=== PATIENT | female | born 1950 | race American Indian/Alaskan Native ===

== ENCOUNTER 2018-01-25 11:21 | Emergency (ER) | payer MEDICAID, MEDICARE ==
[2018-01-25] MEDS ORDERED: MOTRIN PO ONE (14:12)
--- NOTE | 2018-01-25 14:28 | Emergency Department Report ---
ED Lower Extremity HPI - General Chief Complaint: Extremity Injury, Lower Stated Complaint: KNEE PAIN Time Seen by Provider: 01/25/18 13:31 Source: patient Mode of arrival: Ambulatory Limitations: No Limitations - History of Present Illness Initial Comments: This is a 68-year-old female nontoxic, well nourished in appearance, no acute signs of distress presents to the ED with c/o of left knee pain status post fall that occured yesterday. Son is present during interview and exam. Patient stated she had a trip and grown level fall to the left knee. Patient denies any trauma to the head or any other extremities. Patient denies any chest pain, shortness of breathe, fever, chills, headache, nausea, vomiting, numbness, or tingling. Patient denies any allergies or PMH. MD Complaint: knee injury -: days(s) (1) Injury: Knee: Left Type of Injury: blunt Place: street/outdoors Severity: mild Severity scale (0 -10): 8 Improves With: immobilization Worsens With: movement, palpation Context: fall Associated Symptoms: ambulatory. denies: snap/pop sensation, swelling, numbness , tingling, unable to bear weight, able to partially bear weight - Related Data Home Medications Medication Instructions Recorded Confirmed Last Taken Acetaminophen [Arthritis Pain 650 mg PO BID PRN 12/23/15 12/23/15 Unknown Relief] Alendronate Sodium [Fosamax] 70 mg PO QWEEK 12/23/15 12/23/15 Unknown Calcium/Magnesium/Zinc 1 each PO QDAY 12/23/15 12/23/15 Unknown [Whmjuxx-Kcawhjzny-Zzlo Tablet] Gluc/MSM/C/Dawn/Manganes/Prim 1 each PO QDAY 12/23/15 12/23/15 Unknown [Joint Support Complex Softgel] Hydrochlorothiazide [HCTZ] 25 mg PO QDAY 12/23/15 12/23/15 Unknown NIFEdipine XL [Procardia Xl] 60 mg PO QDAY 12/23/15 12/23/15 Unknown [place]-3/Dha/Epa/Fish Oil [Fish Oil 1 each PO DAILY 12/23/15 12/23/15 Unknown [place]-3 EC 1,200 mg] Vit A & D3 in Cod Liver Oil [Pv 1 each PO DAILY 12/23/15 12/23/15 Unknown Cod Liver Oil Softgel] Previous Rx's Medication Instructions Recorded Last Taken Type Ibuprofen [Motrin] 600 mg PO Q8H PRN #30 tablet 01/25/18 Unknown Rx Allergies Allergy/AdvReac Type Severity Reaction Status Date / Time No Known Allergies Allergy Verified 05/29/14 10:10 ED Review of Systems ROS: Stated complaint: KNEE PAIN Other details as noted in HPI Constitutional: denies: chills, fever Eyes: denies: eye pain, eye discharge, vision change ENT: denies: ear pain, throat pain Respiratory: denies: cough, shortness of breath, wheezing Cardiovascular: denies: chest pain, palpitations Endocrine: no symptoms reported Gastrointestinal: denies: abdominal pain, nausea, diarrhea Genitourinary: denies: urgency, dysuria, discharge Musculoskeletal: arthralgia. denies: back pain, joint swelling Skin: denies: rash, lesions Neurological: denies: headache, weakness, paresthesias Psychiatric: denies: anxiety, depression Hematological/Lymphatic: denies: easy bleeding, easy bruising ED Past Medical Hx - Past Medical History Hx Hypertension: Yes Additional medical history: chronic body pain - Social History Smoking Status: Never Smoker Substance Use Type: None - Medications Home Medications: Home Medications Medication Instructions Recorded Confirmed Last Taken Type Acetaminophen [Arthritis Pain 650 mg PO BID PRN 12/23/15 12/23/15 Unknown History Relief] Alendronate Sodium [Fosamax] 70 mg PO QWEEK 12/23/15 12/23/15 Unknown History Calcium/Magnesium/Zinc 1 each PO QDAY 12/23/15 12/23/15 Unknown History [Vodlgpc-Kkunkeacq-Zvgz Tablet] Gluc/MSM/C/Dawn/Manganes/Prim 1 each PO QDAY 12/23/15 12/23/15 Unknown History [Joint Support Complex Softgel] Hydrochlorothiazide [HCTZ] 25 mg PO QDAY 12/23/15 12/23/15 Unknown History NIFEdipine XL [Procardia Xl] 60 mg PO QDAY 12/23/15 12/23/15 Unknown History [place]-3/Dha/Epa/Fish Oil [Fish Oil 1 each PO DAILY 12/23/15 12/23/15 Unknown History [place]-3 EC 1,200 mg] Vit A & D3 in [place] Liver Oil [Pv 1 each PO DAILY 12/23/15 12/23/15 Unknown History Cod Liver Oil Softgel] Ibuprofen [Motrin] 600 mg PO Q8H PRN #30 tablet 01/25/18 Unknown Rx ED Physical Exam - General Limitations: No Limitations General appearance: alert, in no apparent distress - Head Head exam: Present: atraumatic, normocephalic - Eye Eye exam: Present: normal appearance Pupils: Present: normal accommodation - ENT ENT exam: Present: normal exam, mucous membranes moist - Neck Neck exam: Present: normal inspection, full ROM. Absent: tenderness, meningismus - Respiratory Respiratory exam: Present: normal lung sounds bilaterally. Absent: respiratory distress, wheezes, rales, rhonchi, stridor, chest wall tenderness, accessory muscle use, decreased breath sounds, prolonged expiratory - Cardiovascular Cardiovascular Exam: Present: regular rate, normal rhythm, normal heart sounds. Absent: bradycardia, tachycardia, irregular rhythm, systolic murmur, diastolic murmur, rubs, gallop - GI/Abdominal GI/Abdominal exam: Present: soft, normal bowel sounds - Extremities Exam Extremities exam: Present: normal inspection, full ROM, tenderness, normal capillary refill. Absent: pedal edema, joint swelling, calf tenderness - Expanded Lower Extremity Exam Left Hip exam: Present: normal inspection, full ROM, external rotation, internal rotation, pelvic stability. Absent: tenderness, swelling, abrasion, laceration , ecchymosis, deformity, crepidus, dislocation, erythema, shortening Upper Leg exam: Present: normal inspection, full ROM. Absent: tenderness, swelling, abrasion, laceration, ecchymosis, deformity, crepidus, dislocation, erythema Knee exam: Present: normal inspection, full ROM, tenderness, swelling, full knee extension. Absent: abrasion, laceration, ecchymosis, deformity, crepidus, dislocation, effusion, pain w/ pronation/supination, posterior draw sign, pain/ laxity with valgus, pain/laxity with varus Lower Leg exam: Present: normal inspection, full ROM. Absent: tenderness, swelling, abrasion, laceration, ecchymosis, deformity, crepidus, dislocation, erythema, palpable cord, Rosa's sign Ankle exam: Present: normal inspection, full ROM. Absent: tenderness, swelling , abrasion, laceration, ecchymosis, deformity, crepidus, dislocation, erythema, anterior draw sign Foot/Toe exam: Present: normal inspection, full ROM. Absent: tenderness, swelling, abrasion, laceration, ecchymosis, deformity, crepidus, dislocation, erythema, amputation, puncture wound, foreign body, calcaneal tenderness, tenderness at base of 5th metatarsal, nail avulsion, subungual hematoma Neuro vascular tendon exam: Present: no vascular compromise. Absent: pulse deficit, abnormal cap refill, motor deficit, sensory deficit, tendon deficit, extremity cold to touch, pallor, abnormal 2-point discrimination, decreased fine /light touch, foot drop, peroneal nerve deficit, significant pain with passive ROM of distal joint Gait: Positive: observed and normal - Back Exam Back exam: Present: normal inspection, full ROM. Absent: paraspinal tenderness , vertebral tenderness - Neurological Exam Neurological exam: Present: alert, oriented X3, normal gait - Psychiatric Psychiatric exam: Present: normal affect, normal mood - Skin Skin exam: Present: warm, dry, intact, normal color. Absent: rash ED Course Vital Signs 01/25/18 11:46 Temperature 98.6 F Pulse Rate 61 Respiratory 18 Rate Blood Pressure 147/83 O2 Sat by Pulse 98 Oximetry - Reevaluation(s) Reevaluation #1: 01/25/18 14:27 Patient is speaking in full sentences with no signs of distress noted. ED Lower Extremity MDM - Medical Decision Making This is a 68-year-old female that presents with left knee strain. Patient was examined by me. X-ray has been obtained and dictated by the radiologist within normal limits. Patient is notified of the x-ray report with no question that about the patient. There is no joint redness or joint swelling. No signs of cellulitis or abscess formation. No signs of bursitis. Patient received Motrin in the ED. Patient was instructed to RICE therapy. Patient received a knee immobilizer and a walker and was educated by RN that he use walker. Patient was referred to Follow-up with a orthopedic doctor in 3-5 days or if symptoms worsen and continue return to emergency room as soon as possible. At time of discharge, the patient does not seem toxic or ill in appearance. No acute signs of distress noted. Patient agrees to discharge treatment plan of care. No further questions noted by the patient. Critical care attestation.: If time is entered above; I have spent that time in minutes in the direct care of this critically ill patient, excluding procedure time. ED Disposition Clinical Impression: Strain of left knee Qualifiers: Encounter type: initial encounter Qualified Code(s): S86.912A - Strain of unspecified muscle(s) and tendon(s) at lower leg level, left leg, initial encounter Fall Qualifiers: Encounter type: initial encounter Qualified Code(s): W19.XXXA - Unspecified fall, initial encounter Disposition: TO HOME OR SELFCARE Is pt being admited?: No Does the pt Need Aspirin: No Condition: Stable Instructions: Knee Pain (ED), Knee Immobilizer (ED), RICE Therapy (ED), Ibuprofen (By mouth) Additional Instructions: Follow-up with a orthopedic doctor in 3-5 days or if symptoms worsen and continue return to emergency room as soon as possible. Prescriptions: Ibuprofen [Motrin] 600 mg PO Q8H PRN #30 tablet PRN Reason: Pain Referrals: JALEN AMOS MD [Primary Care Provider] - 3-5 Days MAHESH VELASQUEZ MD [Staff Physician] - 3-5 Days [facility] [Outside] - 3-5 Days [facility] [Outside] - 3-5 Days
--- NOTE | 2018-01-25 15:24 | XRay Report ---
LEFT KNEE RADIOGRAPHS INDICATION: Fall with left knee pain. COMPARISON: None similar. FINDINGS: AP, lateral and oblique left knee radiographs demonstrate intact articulation. Mild tibial spine degenerative spurring. Superior and inferior patellar pole enthesophytes. Suprapatellar effusion not excluded. Possible osteopenia. CONCLUSION: Findings, as above. Please correlate. Thank you for the opportunity to participate in this patient's care.
[2018-01-25 16:14] VITALS: BP 149/90
== END 2018-01-25 16:13 | disposition home or self-care (01) ==
LOC: ED 11:21
DX: S86.912A Strain of unspecified muscle(s) and tendon(s) at lower leg level, left leg, initial encounter (principal); W01.0XXA Fall on same level from slipping, tripping and stumbling without subsequent striking against object, initial encounter; Y93.89 Activity, other specified; Y92.89 Other specified places as the place of occurrence of the external cause; Y99.8 Other external cause status

== ENCOUNTER 2022-02-11 08:27 | Emergency (ER) | payer MEDICARE ==
[2022-02-11 08:46] VITALS: BP 156/75
--- NOTE | 2022-02-11 17:21 | Electrocardiograph Report ---
[facility] Test Date: 2022-02-11 Test Time: 08:53:40 Pat Name: PHILLY FELDER Department: Room: Gender: F [employer]yst Supervisor: EMERITA : 1950 Requested By: ED DOC Order Number: [id number] Reading MD: Héctor Samuel Measurements Intervals [place] Rate: 51 P: 47 NE: 148 QRS: 20 QRSD: 127 T: 15 QT: 472 QTc: 435 Interpretive Statements Sinus rhythm Probable left ventricular hypertrophy No previous ECG available for comparison Electronically Signed On 02-11-2022 17:20:54 EDT by Héctor Samuel
== END 2022-02-11 23:25 | disposition left against medical advice (07) ==
LOC: ED 08:27
DX: R11.10 Vomiting, unspecified (principal); R42 Dizziness and giddiness; Z53.21 Procedure and treatment not carried out due to patient leaving prior to being seen by health care provider
CPT/HCPCS: 93005